=== PATIENT | female | born 1950 | race African-American/Black ===

== ENCOUNTER 2021-03-18 08:53 | Outpatient (CLI) | payer MEDICARE, OTHER | END 2021-03-18 08:54 | disposition home or self-care (01) | LOC: CSHMAMMO 08:53 | PROVIDERS: ATTEND Internal Medicine | DX: Z12.31 Encounter for screening mammogram for malignant neoplasm of breast (principal); Z91.89 Other specified personal risk factors, not elsewhere classified | CPT/HCPCS: 77063; 77067 ==

== ENCOUNTER 2023-06-18 13:46 | Outpatient (CLI) | payer OTHER, MEDICAID | END 2023-06-18 13:47 | disposition home or self-care (01) | LOC: CSHULT 13:46 | PROVIDERS: ATTEND Family Medicine | DX: I70.203 Unspecified atherosclerosis of native arteries of extremities, bilateral legs (principal) | CPT/HCPCS: 93923 ==